=== PATIENT | female | born 1960 | race African-American/Black ===

== ENCOUNTER 2017-03-27 11:13 | Emergency (ER) | payer MEDICAID ==
[~2017-03-27] VITALS: Ht 172.7 cm; Wt 59.0 kg
[2017-03-27] MEDS ORDERED: HYDR12.529 PO (11:19)
[2017-03-27 13:30] VITALS: BP 160/92
== END 2017-03-27 13:55 | disposition home or self-care (01) ==
LOC: ER 11:25
DX: R47.02 Dysphasia (principal); I10 Essential (primary) hypertension; F17.200 Nicotine dependence, unspecified, uncomplicated
CPT/HCPCS: 71010; 99283

== ENCOUNTER 2019-03-12 08:29 | Emergency (ER) | payer MEDICAID ==
[~2019-03-12] VITALS: Ht 165.1 cm; Wt 57.0 kg
[~2019-03-12 08:29] MED LIST: HYDR12.529 PO
[2019-03-12] MEDS ORDERED: ACETAMINOPHEN 325MG TABLET PO ONE (09:15)
[2019-03-12 10:01] VITALS: BP 130/89
== END 2019-03-12 10:04 | disposition home or self-care (01) ==
LOC: ER 08:58
DX: R51 Headache (principal); I10 Essential (primary) hypertension; E11.9 Type 2 diabetes mellitus without complications; F33.9 Major depressive disorder, recurrent, unspecified; Z79.899 Other long term (current) drug therapy
CPT/HCPCS: 99283; Z7610

== ENCOUNTER 2019-05-07 11:16 | Emergency (ER) | payer MEDICAID ==
[~2019-05-07] VITALS: Ht 165.1 cm; Wt 68.0 kg
[2019-05-07 23:35] VITALS: BP 133/88
[2019-05-08] MEDS: HYDROCODONE/APAP 7.5/325MG 1 TAB TABLET PO ONE (00:15)
[2019-05-08] MEDS: IBUPROFEN 600MG TABLET PO ONE (00:16)
[2019-05-08] MEDS: AMOXICILLIN/POTASSIUM CLAVULANATE 875/125MG TAB PO ONE (00:16)
== END 2019-05-08 00:15 | disposition home or self-care (01) ==
LOC: ER 13:07
DX: R51 Headache (principal); K04.7 Periapical abscess without sinus; D64.9 Anemia, unspecified; E11.9 Type 2 diabetes mellitus without complications; I10 Essential (primary) hypertension; Z98.890 Other specified postprocedural states
CPT/HCPCS: 99284; Z7610

== ENCOUNTER 2019-05-31 10:31 | Emergency (ER) | payer MEDICAID ==
[~2019-05-31] VITALS: Ht 165.1 cm; Wt 74.0 kg
[2019-05-31] MEDS ORDERED: HYDROCODONE/ACETAMINOPHEN 5/325MG TABLET PO ONE (11:15)
[2019-05-31] MEDS: ONDANSETRON 4MG ODT PO ONE ×2 (11:37→11:39)
[2019-05-31 11:38] VITALS: BP 152/95
== END 2019-05-31 12:10 | disposition home or self-care (01) ==
LOC: ER 11:54
DX: S52.612A Displaced fracture of left ulna styloid process, initial encounter for closed fracture (principal); S52.502A Unspecified fracture of the lower end of left radius, initial encounter for closed fracture; E11.9 Type 2 diabetes mellitus without complications; I10 Essential (primary) hypertension; F17.200 Nicotine dependence, unspecified, uncomplicated; Z79.899 Other long term (current) drug therapy; V00.128A Other non-in-line roller-skating accident, initial encounter; Y93.89 Activity, other specified; Y92.89 Other specified places as the place of occurrence of the external cause; Y99.8 Other external cause status
CPT/HCPCS: 29125; 73110; 99283; A4565; Q0162